=== PATIENT | male | born 1960 | race Caucasian/White ===

== ENCOUNTER 2019-07-08 18:08 | Emergency (ER) | payer OTHER ==
[~2019-07-08] VITALS: Ht 175.3 cm; Wt 93.0 kg
[2019-07-08] MEDS ORDERED: PRINIVIL20 M1 PO (18:33)
[2019-07-08] MEDS ORDERED: METFORMIN HCL500 M3 PO (18:33)
[2019-07-08] MEDS ORDERED: CELEXA 20 MG TA20 MG PO (18:33)
[2019-07-08 19:36] VITALS: BP 122/82
== END 2019-07-08 19:47 | disposition home or self-care (01) ==
LOC: M.ERS 18:08
DX: S93.402A Sprain of unspecified ligament of left ankle, initial encounter (principal); I10 Essential (primary) hypertension; E11.9 Type 2 diabetes mellitus without complications; F32.9 Major depressive disorder, single episode, unspecified; Z90.49 Acquired absence of other specified parts of digestive tract; W18.2XXA Fall in (into) shower or empty bathtub, initial encounter; Y93.89 Activity, other specified; Y92.89 Other specified places as the place of occurrence of the external cause; Y99.8 Other external cause status

== ENCOUNTER 2021-02-14 15:33 | Inpatient (IN) | payer OTHER ==
[~2021-02-14] VITALS: Ht 175.3 cm; Wt 102.1 kg
[~2021-02-14 15:33] MED LIST: CELEXA 20 MG TA20 MG PO; METFORMIN HCL500 M3 PO; PRINIVIL20 M1 PO
[2021-02-14 15:37] VITALS: BP 167/91
[2021-02-14] MEDS ORDERED: LIPITOR10 MG PO (15:49)
[2021-02-14 16:33] LABS: ABSOLUTE LYMPHOCYTES 0.7 thou/uL (0.8-5.3); ABSOLUTE MONOCYTES 0.6 thou/uL (0.0-1.2); ABSOLUTE NEUTROPHILS 3.8 thou/uL (1.6-8.1); BASOPHILS 0.4 %; EOSINOPHILS 0.1 %; HEMATOCRIT 46.8 % (42.0-52.0); HEMOGLOBIN 16.3 gm/dL (14.0-18.0); LYMPHOCYTES 12.7 %; MCHC 34.9 g/dL (28.0-37.0); MONOCYTES 12.1 %; MPV 7.6 fl. (7.2-11.1); NUCLEATED RBCS 0 /100WBC; PLATELET COUNT* 161 thou/uL (150-400); POLYS 74.7 %; RBC 5.44 mil/uL (4.50-6.00); WBC 5.1 thou/uL (4.0-11.0)
[2021-02-14 16:43] LABS: ANION GAP 11 mmol/L (7-16); BUN 23 mg/dL (7-18); CALCIUM 8.1 mg/dL (8.5-10.1); CHLORIDE 99 mmol/L (98-107); CO2 24 mmol/L (21-32); CREATININE 1.2 mg/dL (0.6-1.3); GLUCOSE 273 mg/dL (70-99); POTASSIUM 3.3 mmol/L (3.5-5.1); SODIUM 134 mmol/L (136-145)
[2021-02-14 16:56] LABS: ALBUMIN 3.3 g/dL (3.4-5.0); ALKALINE PHOSPHATASE 66 U/L (46-116); CK-MB MASS < 0.5 ng/mL (<0.5-3.6); NT-PRO BRAIN NAT PEPTIDE 245 pg/mL (<300); SGOT 14 U/L (15-37); SGPT 24 U/L (30-65); TOTAL BILIRUBIN 1.5 mg/dL (<0.1-1.0); TOTAL PROTEIN 6.7 g/dL (6.4-8.2)
--- NOTE | 2021-02-14 19:35 | NUR ---
PT WAS FOUND ON GROUND BY FAMILY AT 1935. PT WAS HELPED BACK TO THE BED, THIS RN ASSESSED THE PATIENT FOR INJURIES. NO INJURIES NOTED, PATIENT DENIES PAIN AT THIS TIME. FAMILY STATES "THE PATIENT WAS HELPED TO THE COMMODE BY SOMEONE AND THEN WE STEPPED OUT OF THE ROOM TO GIVE THE PATIENT PRIVACY, THE PERSON LEFT THE ROOM AND WHEN WE THOUGHT IT WAS TAKING AWHILE WE WENT INTO THE ROOM AND FOUND THE PATIENT ON THE FLOOR". THE PATIENT HAS A HX OF FALLS AT HOME. DR. HALE NOTIFED AND ASSESSED THE PATIENT, DETERMINED NO FURTHER TESTING IS NEEDED DUE TO NO NEW INJURIES AND VITAL SIGNS REMAINED STABLE. WILL CONTINUE TO MONITOR.
[2021-02-14 20:59] VITALS: BP 149/96
[2021-02-14 22:26] VITALS: BP 149/96
[2021-02-15] VITALS (7 sets, daily range): BP systolic 129–155; BP diastolic 72–92
[2021-02-15 04:59] LABS: HEMATOCRIT 44.8 % (42.0-52.0); HEMOGLOBIN 15.6 gm/dL (14.0-18.0); MCH 29.7 pg (26.0-34.0); MCHC 34.9 g/dL (28.0-37.0); MCV 85.2 fL (80.0-100.0); MPV 8.1 fl. (7.2-11.1); RBC 5.26 mil/uL (4.50-6.00); RDW-CV 13.9 % (10.5-14.5); WBC 4.8 thou/uL (4.0-11.0)
[2021-02-15 05:01] LABS: CALCIUM 7.7 mg/dL (8.5-10.1); CREATININE 0.9 mg/dL (0.6-1.3)
[2021-02-15 05:17] LABS: POTASSIUM 2.6 mmol/L (3.5-5.1)
--- NOTE | 2021-02-15 06:20 | NUR ---
DUE TO A FALL IN THE ER PATIENT IS 1:1. FAMILY STATES HE FALLS FREQUENTLY AT HOME AND LIVES ALONE. HE IS ALERT AND ORIENTED WITH SOME MENTAL DECLINE/CONFUSION. CRITICAL K+ THIS AM OF 2.6, PROTOCOL ENTERED. PT STILL NEEDS U/A. RECEIVED FLUIDS AND MEDS SCHEDULED. HE STATES THIS MORNING HE IS FEELING MUCH BETTER AND READY TO GO HOME. SITTER IN ROOM BECAUSE HE IS NON COMPLIANT WITH USING CALL LIGHT FOR HELP UP.
--- NOTE | 2021-02-15 10:58 | EKG ---
[place] [address] ELECTROCARDIOGRAM REPORT Name: INDRA HERNANDEZ Room: [address] IN [facility].#: [id number] Admission: 02/14/21 Attend Phys: Andrea Castillo Discharge: Date of : 62 Date of Service: 02/14/21 1542 Report #: [id number] THIS REPORT FOR: //name// [facility] ED Test Date: 2021-02-14 Test Time: 15:42:44 Pat Name: INDRA HERNANDEZ Department: Room: [facility] Gender: M Senior Graphic Designer: BARRON : 1960 Requested By: John Blackwood Order Number: [id number] MD: Alexis Zayas Measurements Intervals [place] Rate: 119 P: 41 AK: 138 QRS: 25 QRSD: 81 T: -46 QT: 386 QTc: 544 Interpretive Statements Sinus tachycardia Delayed R wave progression over the right precordium Probable left atrial enlargement Borderline T abnormalities, inferior leads Prolonged QT interval No previous ECG available for comparison Electronically Signed On 02-15-2021 10:58:13 CDT by Alexis Zayas [email or web address] <ELECTRONICALLY SIGNED> By: Alexis Zayas MD, [facility] 02/15/21 1058 1542 1542 Alexis Zayas MD, [facility] /EPI
[2021-02-15 12:42] LABS: URINE BILIRUBIN NEGATIVE (Negative); URINE BLOOD 1+ (Negative); URINE CLARITY CLEAR; URINE COLOR YELLOW; URINE GLUCOSE-RANDOM NEGATIVE (Negative); URINE KETONES NEGATIVE (Negative); URINE LEUKOCYTES-REFLEX NEGATIVE (Negative); URINE NITRITE-REFLEX NEGATIVE (Negative); URINE PROTEIN TRACE (Negative); URINE SPECIFIC GRAVITY >= 1.030 (1.005-1.030); URINE UROBILINOGEN 0.2 E.U./dl (0.2-1.0)
[2021-02-15 13:00] LABS: MUCUS 4-6 Moderate strn/LPF (None Seen)
[2021-02-15 13:01] LABS: CRYSTALS None Seen /LPF (None Seen); SQUAMOUS 0-3 Few /LPF (0-3); URINE RBC 0-2 Rare /HPF (0-2); URINE WBC-REFLEX 0-5 Rare /HPF (0-5)
[2021-02-15 13:03] LABS: BACTERIA-REFLEX None Seen /HPF (None Seen); HYALINE CASTS 0-3 Few /LPF (None Seen)
--- NOTE | 2021-02-15 15:03 | NUR ---
ASSUMED CARE OF PT AT 0730. PT A&0X4, FORGETFUL AT TIMES. DENIES ANY PAIN OR SHORTNESS OF BREATH. TRACING SR/ST LOW 100'S ON THE AMBULANCE DRIVER. ON RA SAT UPPER 90'S. URINALYSIS OBTAINED AND SENT TO LAB. AWAITING RESULTS. IVF CHANGED-REFER TO [facility]. PT UP WITH 1 ASSIST-WEAKNESS AND UNSTEADINESS NOTED. PT IMPULSIVE AT TIMES WELL. BED/CHAIR ALARM IN PLACE. PT GOAL FOR TODAY IS WORK WITH THERAPIES, INCREASE ACTIVITY, CALLING FOR ASSIST AND REPLACE POTASSIUM PER ELECTROLYTE PROTOCOL. AM ASSESSMENT CHARTED. MEDICATIONS PER SEP. PT REPOSITIONS SELF. HOURLY ROUNDING OBSERVED. BED IN LOW POSITION. CALL LIGHT WITHIN REACH. WILL CONTINUE PLAN OF CARE.
[2021-02-16 03:56] VITALS: BP 146/82
[2021-02-16 04:26] LABS: HEMATOCRIT 41.3 % (42.0-52.0); HEMOGLOBIN 14.3 gm/dL (14.0-18.0); MCH 29.4 pg (26.0-34.0); MCHC 34.5 g/dL (28.0-37.0); MCV 85.3 fL (80.0-100.0); MPV 7.8 fl. (7.2-11.1); RBC 4.84 mil/uL (4.50-6.00); RDW-CV 13.8 % (10.5-14.5); WBC 4.9 thou/uL (4.0-11.0)
[2021-02-16 04:37] LABS: CALCIUM 7.4 mg/dL (8.5-10.1); CREATININE 0.9 mg/dL (0.6-1.3); MAGNESIUM 1.8 mg/dL (1.8-2.4); POTASSIUM 3.2 mmol/L (3.5-5.1)
--- NOTE | 2021-02-16 06:31 | NUR ---
PT SLEPT ON AND OFF OVERNIGHT, USING CALL LITE APPROPRIATELY OVERNIGHT. AOX4 BUT OCCASSIONALLY FORGETFUL. HS ACCUCHECK 170, INSULINS GIVEN. UP WITH SBA TO BSC FOR BM OVERNIGHT, VOIDING WITHOUT DIFFICULTY. LAC IVF INFUSING PER PUMP. K 3.2 THIS MORNING, PO GIVEN. TELE SR. ROOM AIR. CALL LITE IN EASY REACH, BED ALARM ON FOR SAFETY.
[2021-02-16 07:41] VITALS: BP 130/80; BP 162/57
[2021-02-16 12:13] VITALS: BP 145/81
[2021-02-16 17:27] VITALS: BP 132/81
--- NOTE | 2021-02-16 18:30 | NUR ---
ASSUMED CARE OF PT AT 0730. PT A&0X4, COMPLIANT WITH NURSING STAFF TODAY AND CALLING APPROPRIATELY. PT AMBULATED IN HALLWAY WITH NURSING STAFF THIS AFTERNOON-TOLERATED FAIR-PT UNSTEADY AND WOBBLY AT TIMES. TRACING SR ON THE SENIOR SUSTAINABILITY CONSULTANT. ON RA SAT UPPER 90'S. DENIES ANY PAIN OR SHORTNESS OF BREATH THROUGHOUT SHIFT. PT UP WITH 1 ASSIST. POTASSIUM REPLACED PER ELECTROLYTE PROTOCOL-RE DRAW 4.0. ORDERS RECEIVED TO DC IV AND OK TO LEAVE OUT PER DR BRIZUELA. AM ASSESSMENT CHARTED. MEDICATIONS PER SEP. PT REPOSITIONS SELF. HOURLY ROUNDING OBSERVED. BED IN LOW POSITION. BED/CHAIR ALARM IN PLACE. FALL PRECAUTIONS IN PLACE. CALL LIGHT WITHIN REACH. WILL CONTINUE PLAN OF CARE.
[2021-02-16 20:00] VITALS: BP 138/86
[2021-02-16 23:52] VITALS: BP 143/82
--- NOTE | 2021-02-17 05:05 | NUR ---
PT SLEPT ON AND OFF THIS SHIFT. ASSESSMENT DOCUMENTED. MEDS GIVEN PER -SEP. NO IV ACCESS THIS SHIFT. NO REPORTS OF PAIN. FALL PRECAUTIONS IN PLACE. WILL CONTINUE WITH PLAN OF CARE.
[2021-02-17 05:35] LABS: HEMATOCRIT 40.9 % (42.0-52.0); HEMOGLOBIN 14.3 gm/dL (14.0-18.0); MCH 29.5 pg (26.0-34.0); MCHC 34.9 g/dL (28.0-37.0); MCV 84.5 fL (80.0-100.0); MPV 8.2 fl. (7.2-11.1); RBC 4.84 mil/uL (4.50-6.00); RDW-CV 13.9 % (10.5-14.5); WBC 5.4 thou/uL (4.0-11.0)
[2021-02-17 05:50] LABS: ALBUMIN 2.8 g/dL (3.4-5.0); CALCIUM 7.9 mg/dL (8.5-10.1); CREATININE 0.8 mg/dL (0.6-1.3); POTASSIUM 3.2 mmol/L (3.5-5.1); TOTAL PROTEIN 6.2 g/dL (6.4-8.2)
--- NOTE | 2021-02-17 08:02 | NUR ---
cm completed the initial assessment to discuss d/c planning. pt indicated he lives alone in an apt. pt drives a vehicle and completes own chores. pt is independent with care. pt has no medical equipment nor does pt use hh or have an hx with snf. cm to cont to follow.
[2021-02-17 09:08] VITALS: BP 137/83
--- NOTE | 2021-02-17 15:30 | NUR ---
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 SHERYA FLOREST
[2021-02-17 16:24] VITALS: BP 118/83
[2021-02-17 20:00] VITALS: BP 137/76
--- NOTE | 2021-02-18 06:31 | NUR ---
PT REPORTING NO ISSUES, PAIN OR DISCOMFORT. RECEIVED ALL MEDS SCHEDULED. HE SLEPT ALL SHIFT WITHOUT INCIDENTS. STILL DOES NOT USE CALL LIGHT. WILL CONTINUE TO MONITOR.
--- NOTE | 2021-02-18 12:34 | NUR ---
POC IS FOR PT TO D/C TODAY W/ NO DISCHARGE NEEDS FROM CM STANDPOINT.
[2021-02-18 14:06] VITALS: BP 117/78
[2021-02-18 14:11] VITALS: BP 117/78
[2021-02-18 15:19] VITALS: BP 117/78
--- NOTE | 2021-02-18 16:02 | NUR ---
PT DISCHARGED HOME WITH ALL BELONGINGS ACCOMPANIED BY A FRIEND. PT HAS GOOD UNDERSTANDING OF DISCHARGWE INFORMATION. PT HAS PAPER WORK WITH HIN TO REFER TOO ON HIS MEDICATIONS AND KNOWS TO HEALTH INFORMATION MANAGERS MEDICATIONS ON HIS WAY HOME. PT DISCHARGED HOME DENING PAIN ON DISCHARGE.
== END 2021-02-18 15:50 | disposition home health service (06) | DRG 637 ==
LOC: M.ERS 15:33 → M.TBA-ER 17:04 → M.2W 17:04
PROVIDERS: Family Medicine; Internal Medicine; ADMIT Internal Medicine; ATTEND Internal Medicine
DX: E11.65 Type 2 diabetes mellitus with hyperglycemia (principal); G93.41 Metabolic encephalopathy; E87.1 Hypo-osmolality and hyponatremia; E87.6 Hypokalemia; E11.9 Type 2 diabetes mellitus without complications; I10 Essential (primary) hypertension; F32.9 Major depressive disorder, single episode, unspecified; Z20.822 Contact with and (suspected) exposure to COVID-19; Z79.84 Long term (current) use of oral hypoglycemic drugs; Z79.899 Other long term (current) drug therapy; Z87.820 Personal history of traumatic brain injury

== ENCOUNTER 2021-04-12 19:34 | Emergency (ER) | payer OTHER ==
[~2021-04-12] VITALS: Ht 175.3 cm; Wt 95.3 kg
[~2021-04-12 19:34] MED LIST changes: +LIPITOR10 MG PO
[2021-04-12 21:20] VITALS: BP 134/84
== END 2021-04-12 21:20 | disposition home or self-care (01) ==
LOC: M.ERS 19:34
DX: S01.01XA Laceration without foreign body of scalp, initial encounter (principal); E11.9 Type 2 diabetes mellitus without complications; I10 Essential (primary) hypertension; F32.9 Major depressive disorder, single episode, unspecified; Z90.89 Acquired absence of other organs; Z79.899 Other long term (current) drug therapy; W22.8XXA Striking against or struck by other objects, initial encounter; Y93.89 Activity, other specified; Y92.89 Other specified places as the place of occurrence of the external cause; Y99.8 Other external cause status